=== PATIENT | female | born 1950 | race American Indian/Alaskan Native ===

== ENCOUNTER → 2016-06-09 | Outpatient (CLI) | payer OTHER, BC ==
--- NOTE | 2016-06-09 12:43 | CR ---
EXAMINATION: Left knee HISTORY: Pain COMPARISON: 05/07/2016 TECHNIQUE: 4 views FINDINGS: Left medial hemiarthroplasty hardware noted within the left knee, stable in position and a lignment. There is depression and likely cortical disruption of the lateral tibial plateau. There is persistent small joint effusion. The osseous structures otherwise appear osteopenic. Osteophyte for mation is noted within the patellofemoral compartment. IMPRESSION: 1. Healing stable bilateral plateau fracture. 2. Stable medial hemiarthroplasty hardware.
== END ==
LOC: MW.CHORTHO 07:45
PROVIDERS: ATTEND Orthopaedic Surgery
DX: M25.562 Pain in left knee (principal); S82.145D Nondisplaced bicondylar fracture of left tibia, subsequent encounter for closed fracture with routine healing; Z96.7 Presence of other bone and tendon implants
CPT/HCPCS: 73564-26-LT; 73564-LT